=== PATIENT | male | born 1980 | race Caucasian/White ===

== ENCOUNTER 2019-04-14 22:57 | Emergency (ER) | payer OTHER ==
[~2019-04-14] VITALS: Ht 175.3 cm; Wt 77.1 kg
[2019-04-14 23:30] VITALS: BP 127/81
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
[2019-04-14] MEDS ORDERED: ANTIBIOTIC28.4 GM TP (23:40)
[2019-04-14] MEDS ORDERED: Bacitracin Oint 15gm Tube TOPIC ONE (23:45)
[2019-04-14] MEDS ORDERED: Tetanus/Diptheria/Pertussis IM ONE (23:45)
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
[2019-04-15] VITALS: BP 125/74
--- NOTE | 2019-04-15 | NUR ---
ER DISCHARGE NOTE: Patient is cleared to be discharged per ERMD, pt is aox4, on room air, with stable vital signs. pt was given dc and prescription instructions, pt was able to verbalize understanding, pt id band removed. pt is able to ambulate with steady gait. pt took all belongings.
== END 2019-04-15 | disposition home or self-care (01) ==
LOC: EMR 23:30
DX: T24.011A Burn of unspecified degree of right thigh, initial encounter (principal); Z23 Encounter for immunization; T25.022A Burn of unspecified degree of left foot, initial encounter; X11.8XXA Contact with other hot tap-water, initial encounter; Y92.9 Unspecified place or not applicable
CPT/HCPCS: 90471; 90715; 99282